=== PATIENT | female | born 1940 | race Caucasian/White ===

== ENCOUNTER 2018-03-18 15:57 | Emergency (ER) | payer MEDICARE, OTHER ==
[~2018-03-18] VITALS: Ht 167.6 cm; Wt 77.1 kg
[2018-03-18] MEDS ORDERED: BP MED (16:11)
[2018-03-18] MEDS ORDERED: TOPROL XL25 MG PO (16:11)
[2018-03-18] MEDS ORDERED: CHOLESTEROL MED (16:11)
[2018-03-18] MEDS ORDERED: COUMADIN 2.5MG2.5 M1 PO (16:11)
[2018-03-18] MEDS ORDERED: MULTIVITAMINS (16:12)
[2018-03-18 17:30] VITALS: BP 133/81
== END 2018-03-18 17:30 | disposition home or self-care (01) ==
LOC: M.ERS 15:57
DX: S01.01XA Laceration without foreign body of scalp, initial encounter (principal); K21.9 Gastro-esophageal reflux disease without esophagitis; M19.90 Unspecified osteoarthritis, unspecified site; Z90.710 Acquired absence of both cervix and uterus; Z98.890 Other specified postprocedural states; W01.0XXA Fall on same level from slipping, tripping and stumbling without subsequent striking against object, initial encounter; Y93.89 Activity, other specified; Y92.89 Other specified places as the place of occurrence of the external cause; Y99.8 Other external cause status; Z88.8 Allergy status to other drugs, medicaments and biological substances

== ENCOUNTER 2021-03-28 20:38 | Inpatient (IN) | payer MEDICARE, OTHER ==
[~2021-03-28] VITALS: Ht 167.6 cm; Wt 73.9 kg
--- NOTE | ~2021-03-28 | EMS ---
[facility] [address] [place] [address] EMS Patient Care Report Name: GRACIELA ARRIAZA Room: [facility]#: [id number] Admission: 03/28/21 Attend Phys: Discharge: Date of : 38 Report #: [id number] THIS REPORT FOR: //name// Report Transmitted: 03/28/2021 20:37 EMS Care Summary [place] [employer] [facility] Incident [id number] @ 03/28/2021 19:33 Incident Location [facility] [address] [place] [address] Patient GRACIELA ARRIAZA Female, 80 Years 1940 Patient Address [address] [place] [address] Patient History Hypertension (HTN),Hyperlipidemia,Anemia, Patient Allergies No known allergies, Patient Medications Pravastatin, Losartan, Metoprolol, Warfarin, Hydrochlorothiazide (Hctz), Chief Complaint Left Hip Pain Disposition Transported No Lights/[place] Dispatch Reason Falls Transported To [facility] Narrative Med 1 and Utility 1 was dispatched for a [age] year old female c/o fall and left hip pain. Upon arrival, patient's was outside the residence and led us into the residence to the back bedroom where the patient was lying on her right side c/o left hip pain. Patient was AOx3, she had a strong, [facility] [address] [place] [address] EMS Patient Care Report Name: GRACIELA ARRIAZA Room: [facility]#: [id number] Admission: 03/28/21 Attend Phys: Discharge: Date of : 38 Report #: [id number] regular bilateral radial pulses. Patient reported that she was getting her husbands bed ready for him when she tripped and fell falling onto the hardwood floor on her left hip. Patient c/o left hip pain upon palpation. Patient rated her pain at a 8/10. She slight rotation to her left leg and was not able to straighten it. She had good pedal pulses in both feet. A sheet was placed under the patients hips and she was placed on a scoop stretcher and moved to the cot. Patient was secured to the cot via seatbelts and moved to the ambulance without incident. In the ambulance, patients vitals were obtained and patient was placed on the manager monitoring. IV access was attempted 2x without success. Patient is on blood thinners and both IV attempts blew. Patient was given 50 mcg of Fentanyl via nasal atomizer. Med 1 went en route to [facility]. Patient was asked to rate her pain after having the Fentanyl, patient rated her pain at a 2/10. Patient was monitored throughout transport. Hospital report was given via radio with no questions or orders received or requested. Med 1 arrived at the hospital. Patient was moved into the hospital via stretcher without incident. Patient care was transferred to ER staff in room 15. Med 1 returned back into service. [id number] KShook Initial Vitals @20:06Pain: 8/10,GCS: 15,Glucose: 123, @20:10P: 95,R: 18,BP: 142/101,GCS: 15,SpO2: 100,Revised Trauma: 12, @20:01R: 18,BP: 137/65,Pain: 8/10, @20:31P: 124,R: 18,BP: 112/82,Pain: 2/10,GCS: 15,SpO2: 97,Revised Trauma: 12, @20:21P: 69,R: 18,BP: 104/73,GCS: 15,SpO2: 100,Revised Trauma: 12, Impression Injury of Hip Procedures @20:08 IV Therapy - Saline Lock cc (22 ga) Site: Forearm-Right Response: UnchangedFailed @20:09 Fentanyl - 50 Micrograms (mcg) - Intranasal Response: Unchanged Timeline 19:33,Call Received 19:33,Dispatched 19:35,En Route 19:41,[place] [address] EMS Patient Care Report Name: GRACIELA ARRIAZA Room: [facility]#: [id number] Admission: 03/28/21 Attend Phys: Discharge: Date of : 38 Report #: [id number] 19:42,At Patient 20:01,BP: 137/65 M,PULSE: ,RR: 18 R,SPO2: Ox,ETCO2: ,BG: ,PAIN: 8,GCS: , 20:06,BP: / M,PULSE: ,RR: R,SPO2: Ox,ETCO2: ,B,PAIN: 8,GCS: 15, 20:08,IV Therapy - Saline Lock cc 22 ga Site: Forearm-Right,Response: UnchangedFailed, 20:09,Fentanyl - 50 Micrograms (mcg) - Intranasal,Response: Unchanged 20:10,Depart Scene 20:10,BP: 142/101 M,PULSE: 95,RR: 18 R,SPO2: 100 Ox,ETCO2: ,BG: ,PAIN: ,GCS: 15, 20:21,BP: 104/73 M,PULSE: 69,RR: 18 R,SPO2: 100 Ox,ETCO2: ,BG: ,PAIN: ,GCS: 15, 20:31,BP: 112/82 M,PULSE: 124,RR: 18 R,SPO2: 97 Ox,ETCO2: ,BG: ,PAIN: 2,GCS: 15, 20:35,At Destination 21:05,Call Closed 21:05,In District Disclaimer v1.1 Copyright 2020 [employer] This EMS Care Summary contains data elements from the applicable legal record (which may be displayed differently). It is designed to provide pertinent information for the following purposes: continuity of care, clinical quality, and state data reporting. The complete legal record is available to ED staff and administrators of the receiving hospital in [employer]s Patient Tracker. All data is provided "as is."
--- NOTE | ~2021-03-28 | EMS ---
[facility] [address] [place] [address] EMS Patient Care Report Name: GRACIELA ARRIAZA Room: [facility]#: [id number] Admission: 03/28/21 Attend Phys: Discharge: Date of : 38 Report #: [id number] THIS REPORT FOR: //name// Report Transmitted: 03/28/2021 21:38 EMS Care Summary [place] [employer] [facility] Incident [id number] @ 03/28/2021 19:33 Incident Location [facility] [address] [place] [address] Patient GRACIELA ARRIAZA Female, 80 Years 1940 Patient Address [address] [place] [address] Patient History Hypertension (HTN),Hyperlipidemia,Anemia, Patient Allergies No known allergies, Patient Medications Pravastatin, Losartan, Metoprolol, Warfarin, Hydrochlorothiazide (Hctz), Chief Complaint Left Hip Pain Disposition Transported No Lights/[place] Dispatch Reason Falls Transported To [facility] Narrative Med 1 and Utility 1 was dispatched for a [age] year old female c/o fall and left hip pain. Upon arrival, patient's was outside the residence and led us into the residence to the back bedroom where the patient was lying on her right side c/o left hip pain. Patient was AOx3, she had a strong, [facility] [address] [place] [address] EMS Patient Care Report Name: GRACIELA ARRIAZA Room: [facility]#: [id number] Admission: 03/28/21 Attend Phys: Discharge: Date of : 38 Report #: [id number] regular bilateral radial pulses. Patient reported that she was getting her husbands bed ready for him when she tripped and fell falling onto the hardwood floor on her left hip. Patient c/o left hip pain upon palpation. Patient rated her pain at a 8/10. She slight rotation to her left leg and was not able to straighten it. She had good pedal pulses in both feet. A sheet was placed under the patients hips and she was placed on a scoop stretcher and moved to the cot. Patient was secured to the cot via seatbelts and moved to the ambulance without incident. In the ambulance, patients vitals were obtained and patient was placed on the bus driver/monitor. IV access was attempted 2x without success. Patient is on blood thinners and both IV attempts blew. Patient was given 50 mcg of Fentanyl via nasal atomizer. Med 1 went en route to [facility] [place]. Patient was asked to rate her pain after having the Fentanyl, patient rated her pain at a 2/10. Patient was monitored throughout transport. Hospital report was given via radio with no questions or orders received or requested. Med 1 arrived at the hospital. Patient was moved into the hospital via stretcher without incident. Patient care was transferred to ER staff in room 15. Med 1 returned back into service. [id number] KShook Initial Vitals @20:06Pain: 8/10,GCS: 15,Glucose: 123, @20:10P: 95,R: 18,BP: 142/101,GCS: 15,SpO2: 100,Revised Trauma: 12, @20:01R: 18,BP: 137/65,Pain: 8/10, @20:31P: 124,R: 18,BP: 112/82,Pain: 2/10,GCS: 15,SpO2: 97,Revised Trauma: 12, @20:21P: 69,R: 18,BP: 104/73,GCS: 15,SpO2: 100,Revised Trauma: 12, Impression Injury of Hip Procedures @20:08 IV Therapy - Saline Lock cc (22 ga) Site: Forearm-Right Response: UnchangedFailed @20:09 Fentanyl - 50 Micrograms (mcg) - Intranasal Response: Unchanged Timeline 19:33,Call Received 19:33,Dispatched 19:35,En Route 19:41,[place] [address] EMS Patient Care Report Name: GRACIELA ARRIAZA Room: [facility]#: [id number] Admission: 03/28/21 Attend Phys: Discharge: Date of : 38 Report #: [id number] 19:42,At Patient 20:01,BP: 137/65 M,PULSE: ,RR: 18 R,SPO2: Ox,ETCO2: ,BG: ,PAIN: 8,GCS: , 20:06,BP: / M,PULSE: ,RR: R,SPO2: Ox,ETCO2: ,B,PAIN: 8,GCS: 15, 20:08,IV Therapy - Saline Lock cc 22 ga Site: Forearm-Right,Response: UnchangedFailed, 20:09,Fentanyl - 50 Micrograms (mcg) - Intranasal,Response: Unchanged 20:10,Depart Scene 20:10,BP: 142/101 M,PULSE: 95,RR: 18 R,SPO2: 100 Ox,ETCO2: ,BG: ,PAIN: ,GCS: 15, 20:21,BP: 104/73 M,PULSE: 69,RR: 18 R,SPO2: 100 Ox,ETCO2: ,BG: ,PAIN: ,GCS: 15, 20:31,BP: 112/82 M,PULSE: 124,RR: 18 R,SPO2: 97 Ox,ETCO2: ,BG: ,PAIN: 2,GCS: 15, 20:35,At Destination 21:05,Call Closed 21:05,In District Disclaimer v1.1 Copyright 2020 [employer] This EMS Care Summary contains data elements from the applicable legal record (which may be displayed differently). It is designed to provide pertinent information for the following purposes: continuity of care, clinical quality, and state data reporting. The complete legal record is available to ED staff and administrators of the receiving hospital in [employer]'s Patient Tracker. All data is provided "as is."
[~2021-03-28 20:38] MED LIST: BP MED; CHOLESTEROL MED; JANTOVEN2.5 MG PO; MULTIVITAMINS; TOPROL XL25 MG PO
[2021-03-28 20:42] VITALS: BP 116/73
[2021-03-28 21:30] LABS: ABSOLUTE EOSINOPHILS 0.1 thou/uL (0.0-0.7); ABSOLUTE LYMPHOCYTES 1.5 thou/uL (0.8-5.3); ABSOLUTE MONOCYTES 1.1 thou/uL (0.0-1.2); ABSOLUTE NEUTROPHILS 8.9 thou/uL (1.6-8.1); BASOPHILS 0.3 %; EOSINOPHILS 1.1 %; HEMATOCRIT 36.7 % (37.0-47.0); HEMOGLOBIN 11.6 gm/dL (12.0-15.0); LYMPHOCYTES 13.1 %; MCH 24.9 pg (26.0-34.0); MCHC 31.7 g/dL (28.0-37.0); MCV 78.5 fL (80.0-100.0); MONOCYTES 9.5 %; MPV 7.1 fl. (7.2-11.1); NUCLEATED RBCS 0 /100WBC; PLATELET COUNT* 249 thou/uL (150-400); RBC 4.67 mil/uL (4.20-5.00); RDW-CV 19.1 % (10.5-14.5); WBC 11.7 thou/uL (4.0-11.0)
[2021-03-28 22:00] LABS: CALCIUM 8.1 mg/dL (8.5-10.1); CREATININE 1.9 mg/dL (0.6-1.3); POTASSIUM 3.2 mmol/L (3.5-5.1)
[2021-03-28 22:04] LABS: TOTAL BILIRUBIN 0.5 mg/dL (<0.1-1.0); TOTAL PROTEIN 6.6 g/dL (6.4-8.2)
[2021-03-28 22:09] LABS: INR 3.5; PROTIME 34.6 Seconds (9.20-11.50)
[2021-03-28 22:10] LABS: INFLUENZA A ANTIGEN Negative (Negative); INFLUENZA B ANTIGEN Negative (Negative)
[2021-03-28 22:20] LABS: URINE BILIRUBIN NEGATIVE (Negative); URINE BLOOD NEGATIVE (Negative); URINE CLARITY CLEAR; URINE COLOR YELLOW; URINE GLUCOSE-RANDOM NEGATIVE (Negative); URINE KETONES NEGATIVE (Negative); URINE LEUKOCYTES-REFLEX NEGATIVE (Negative); URINE NITRITE-REFLEX NEGATIVE (Negative); URINE PROTEIN 1+ (Negative); URINE UROBILINOGEN 0.2 E.U./dl (0.2-1.0)
[2021-03-29 02:00] VITALS: BP 125/59
[2021-03-29 10:01] VITALS: BP 133/54
--- NOTE | 2021-03-29 10:55 | EKG ---
[place] [address] ELECTROCARDIOGRAM REPORT Name: GRACIELA ARRIAZA Room: [place] [address] ADM [place] [facility]#: [id number] Admission: 03/28/21 Attend Phys: Tigist Espinosa Discharge: Date of : 38 Date of Service: 03/28/212051 Report #: [id number] THIS REPORT FOR: //name// [facility] ED Test Date: 2021-03-28 Test Time: 20:52:51 Pat Name: GRACIELA ARRIAZA Department: Room: [facility] Gender: F [employer]: [place] : 1940 Requested By: Sona Campbell Order Number: [id number] MD: Fabian Goodrich Measurements Intervals [place] Rate: 68 P: WI: QRS: 13 QRSD: 89 T: 46 QT: 409 QTc: 436 Interpretive Statements Atrial fibrillation Compared to ECG 02/28/2007 03:31:23 Sinus rhythm no longer present Atrial fibrillation is noted Electronically Signed On 03-29-2021 10:55:13 [employer] by Fabian Goodrich [email or web address] <ELECTRONICALLY SIGNED> By: Fbaian Goodrich MD, FAC 03/29/21 1055 51 51 Fabian Goodrich MD, [facility] /EPI
[2021-03-29 14:04] VITALS: BP 131/60
[2021-03-29 16:37] LABS: CALCIUM 7.6 mg/dL (8.5-10.1); CREATININE 2.1 mg/dL (0.6-1.3); MAGNESIUM 1.6 mg/dL (1.8-2.4); POTASSIUM 3.3 mmol/L (3.5-5.1)
[2021-03-29 17:22] VITALS: BP 115/49
--- NOTE | 2021-03-29 18:56 | 2DMMODE ---
[place] [address] 2 D/M-MODE ECHOCARDIOGRAM Name: SOFIYAGRACIELA Cooper Room: [address] IN [facility]#: [id number] Admission: 03/28/21 Attend Phys: Tigist Espinosa Discharge: Date of : 38 Date of Service: 03/29/21 1856 Report #: [id number] THIS REPORT FOR: cc: Bassam Cochran MD, Christopher MD Liston, Michael J. MD [facility] ~ APPROVED REPORT Study performed: 03/29/2021 15:57:26 EXAM: Comprehensive 2D, Doppler, and color-flow Echocardiogram Patient Location: In-Patient Room #: [facility] Status: routine BSA: 1.90 HR: 107 bpm BP: 131/60 mmHg Rhythm: Atrial Fibrillation Other Information Study Quality: Good Indications Pre-Op Atrial Fibrillation 2D Dimensions IVSd: 12.28 (7-11mm) LVOT Diam: 19.08 (18-24mm) LVDd: 41.21 mm PWd: 12.07 (7-11mm) LVDs: 19.92 (25-40mm) Aortic Root: 26.85 mm Volumes Left Atrial Volume (Systole) LA ESV Index: 30.50 mL/m2 Aortic Valve AoV Peak Musa.: 1.38 m/s AO Peak Gr.: 7.56 mmHg LVOT Max P.62 mmHg AO Mean Gr.: 4.30 mmHg LVOT Mean P.01 mmHg LVOT Max V: 0.95 m/s AO V2 VTI: 21.84 cm LVOT Mean V: 0.66 m/s UMM (VTI): 2.47 cm2 LVOT V1 VTI: 18.86 [place] [address] 2 D/M-MODE ECHOCARDIOGRAM Name: GRACIELA ARRIAZA Room: [address] IN .R.#: [id number] Admission: 03/28/21 Attend Phys: Tigist Espinosa Discharge: Date of : 38 Date of Service: 03/29/21 1856 Report #: [id number] Tricuspid Valve RAP Estimate: 5.00 mmHg TR Peak Gr.: 46.85 mmHg RVSP: 51.00 mmHg PA Pressure: 51.00 mmHg Left Ventricle The left ventricle is normal size. There is normal LV segmental wall motion. Mild concentric left ventricular hypertrophy. Left ventricular systolic function is hyperdynamic. LVEF is >70%. This study is not technically sufficient to allow evaluation of the LV diastolic function due to atrial fibrillation. Right Ventricle The right ventricle is normal size. The right ventricular systolic function is normal. Atria The left atrium size is normal. The right atrium size is normal. Aortic Valve Mild aortic valve sclerosis. No aortic regurgitation is present. There is no aortic valvular stenosis. Mitral Valve The mitral valve is normal in structure. Mild mitral regurgitation. No evidence of mitral valve stenosis. Tricuspid Valve The tricuspid valve is normal in structure. Mild tricuspid regurgitation. Moderate pulmonary hypertension. The RVSP is 50-55 mmHg. Pulmonic Valve The pulmonary valve is normal in structure. There is no pulmonic valvular regurgitation. Great Vessels The aortic root is normal in size. IVC is not well visualized. Pericardium There is no pericardial effusion. <Conclusion> [place] [address] 2 D/M-MODE ECHOCARDIOGRAM Name: SOFIYAGRACIELA Cooper Room: [address] IN [facility].#: [id number] Admission: 03/28/21 Attend Phys: Tigist Espinosa Discharge: Date of : 38 Date of Service: 03/29/21 1856 Report #: [id number] The left ventricle is normal size. Mild concentric left ventricular hypertrophy. Left ventricular systolic function is hyperdynamic. LVEF is >70%. This study is not technically sufficient to allow evaluation of the LV diastolic function due to atrial fibrillation. There is normal LV segmental wall motion. Mild aortic valve sclerosis. There is no aortic valvular stenosis. Mild mitral regurgitation. Mild tricuspid regurgitation. Moderate pulmonary hypertension. The RVSP is 50-55 mmHg. <ELECTRONICALLY SIGNED> By: Ajith Viramontes MD, FACC 03/29/211855 55 55 Ajith Viramontes MD, FACC /INF
[2021-03-29 20:00] VITALS: BP 107/37
[2021-03-29 21:38] VITALS: BP 105/51; BP 111/49
[2021-03-30] VITALS: BP 99/59
[2021-03-30 04:15] LABS: HEMATOCRIT 33.4 % (37.0-47.0); HEMOGLOBIN 10.6 gm/dL (12.0-15.0); MCH 25.2 pg (26.0-34.0); MCHC 31.8 g/dL (28.0-37.0); MCV 79.3 fL (80.0-100.0); MPV 7.4 fl. (7.2-11.1); RBC 4.22 mil/uL (4.20-5.00); RDW-CV 18.9 % (10.5-14.5); WBC 11.7 thou/uL (4.0-11.0)
[2021-03-30 04:32] LABS: PROTIME 14.5 Seconds (9.20-11.50)
[2021-03-30 04:35] LABS: INR 1.4
[2021-03-30 04:43] LABS: ALBUMIN 2.6 g/dL (3.4-5.0); CALCIUM 7.8 mg/dL (8.5-10.1); CREATININE 1.9 mg/dL (0.6-1.3); MAGNESIUM 1.6 mg/dL (1.8-2.4); POTASSIUM 3.8 mmol/L (3.5-5.1); TOTAL BILIRUBIN 0.6 mg/dL (<0.1-1.0); TOTAL PROTEIN 6.8 g/dL (6.4-8.2)
[2021-03-30 09:00] VITALS: BP 132/58
[2021-03-30 17:42] VITALS: BP 133/63
[2021-03-30 20:00] VITALS: BP 137/71
[2021-03-31] VITALS: BP 128/78
[2021-03-31 04:00] VITALS: BP 122/63
[2021-03-31 04:35] LABS: HEMATOCRIT 28.2 % (37.0-47.0); HEMOGLOBIN 9.1 gm/dL (12.0-15.0); MCH 24.9 pg (26.0-34.0); MCHC 32.3 g/dL (28.0-37.0); MPV 7.5 fl. (7.2-11.1); RBC 3.67 mil/uL (4.20-5.00); RDW-CV 19.3 % (10.5-14.5); WBC 11.4 thou/uL (4.0-11.0)
[2021-03-31 04:54] LABS: APTT 33.4 Seconds (25.0-31.3); INR 1.4; PROTIME 13.9 Seconds (9.20-11.50)
[2021-03-31 05:00] LABS: CALCIUM 7.5 mg/dL (8.5-10.1); CREATININE 1.8 mg/dL (0.6-1.3); PHOSPHORUS* 2.4 mg/dL (2.5-4.9); POTASSIUM 3.8 mmol/L (3.5-5.1)
[2021-03-31 07:40] VITALS: BP 129/33
[2021-03-31 13:41] VITALS: BP 111/77
[2021-03-31 18:55] VITALS: BP 104/56
[2021-03-31 20:00] VITALS: BP 140/58
[2021-04-01] VITALS: BP 137/66
[2021-04-01 08:10] VITALS: BP 157/65
[2021-04-01 16:00] VITALS: BP 133/73
[2021-04-01 18:55] VITALS: BP 122/68
[2021-04-01 20:00] VITALS: BP 143/68
[2021-04-02 02:17] VITALS: BP 122/59
[2021-04-02] MEDS ORDERED: FLEXERIL PO (07:40)
[2021-04-02] MEDS ORDERED: ULTRAM 50MG TAB50 MG PO (07:41)
[2021-04-02] MEDS ORDERED: OXYCODONE HCL5 M1 PO (07:41)
[2021-04-02] MEDS ORDERED: PAIN RELIEVER500 MG PO (07:42)
== END 2021-04-02 08:26 | DRG 521 ==
LOC: M.ERS 20:38 → M.TBA-ER 21:56 → M.2W 03-29 14:53
PROVIDERS: Emergency Medicine; Internal Medicine; ADMIT Internal Medicine; ATTEND Internal Medicine
PROC: 30233K1 Transfusion of Nonautologous Frozen Plasma into Peripheral Vein, Percutaneous Approach (ICD-10-PCS; principal; 2021-03-29)
PROC: 0SRB01Z Replacement of Left Hip Joint with Metal Synthetic Substitute, Open Approach (ICD-10-PCS; 2021-03-30)
DX: S72.012A Unspecified intracapsular fracture of left femur, initial encounter for closed fracture (principal); N17.0 Acute kidney failure with tubular necrosis; G92.9 Unspecified toxic encephalopathy; E87.1 Hypo-osmolality and hyponatremia; Z20.822 Contact with and (suspected) exposure to COVID-19; K21.9 Gastro-esophageal reflux disease without esophagitis; M19.90 Unspecified osteoarthritis, unspecified site; J06.9 Acute upper respiratory infection, unspecified; I48.91 Unspecified atrial fibrillation; R54 Age-related physical debility; E87.6 Hypokalemia; I95.9 Hypotension, unspecified; E83.42 Hypomagnesemia; E86.0 Dehydration; T50.905A Adverse effect of unspecified drugs, medicaments and biological substances, initial encounter; Y92.89 Other specified places as the place of occurrence of the external cause; Z90.710 Acquired absence of both cervix and uterus; W18.39XA Other fall on same level, initial encounter; Y93.89 Activity, other specified; Y99.8 Other external cause status

== ENCOUNTER 2021-04-01 14:41 | Inpatient (IN) | payer MEDICARE, OTHER ==
[~2021-04-01] VITALS: Ht 162.6 cm; Wt 76.2 kg
[2021-04-02] MEDS ORDERED: FLEXERIL PO (07:40)
[2021-04-02] MEDS ORDERED: ULTRAM 50MG TAB50 MG PO (07:41)
[2021-04-02] MEDS ORDERED: OXYCODONE HCL5 M1 PO (07:41)
[2021-04-02] MEDS ORDERED: PAIN RELIEVER500 MG PO (07:42)
[2021-04-02 13:22] LABS: HEMATOCRIT 31.1 % (37.0-47.0); MCH 25.2 pg (26.0-34.0); MCHC 32.2 g/dL (28.0-37.0); MCV 78.4 fL (80.0-100.0); MPV 7.3 fl. (7.2-11.1); RBC 3.96 mil/uL (4.20-5.00); WBC 14.3 thou/uL (4.0-11.0)
[2021-04-02 13:38] LABS: ALBUMIN 2.3 g/dL (3.4-5.0); CREATININE 1.1 mg/dL (0.6-1.3); POTASSIUM 3.3 mmol/L (3.5-5.1); TOTAL BILIRUBIN 0.4 mg/dL (<0.1-1.0); TOTAL PROTEIN 6.3 g/dL (6.4-8.2)
--- NOTE | 2021-04-02 17:45 | NUR ---
PT ADMITTED FROM ROOM 218 WITH L HIP FX WHICH WAS REPAIRED. DRESSING TO L HIP C/D/I. UP WITH GAIT BELT, WALKER AND ASSIST X2. SCHEDULED TYLENOL GIVEN FOR PAIN. PT HAD SMALL BM TODAY AFTER NOT GOING X4 DAYS. STOOL SOFTENER ALSO GIVEN WITH NO RESULTS AT THIS TIME. PT'S SON, YADI, HERE DURING ADMISSION AND ASSISTED WITH INFO. REPORTS THAT SHE HAS BEEN HALLUCINATING HERE AND AT HOME AND HAS DEMENTIA. PT'S HERE LAST SATURDAY OF A HEART ATTACK. PT IS AWARE. HUI TO DD. PT REPORTS THAT SHE HAS A COLD AND LOST HER VOICE. DR VERMA AWARE. MEDICATION ORDERED. CALL LIGHT IN REACH. FALL PRECAUTIONS IN PLACE.
[2021-04-02 20:11] VITALS: BP 148/78
--- NOTE | 2021-04-03 04:51 | NUR ---
ASSUMED PT CARE AT 1930. PT ALERT AND ORIENTED X4, POLITE AND COOPERATIVE WITH CARES. DRESSING TO L HIP C/D/I. HUI TO DD DRAINING DARK YELLOW URINE. UP WITH GAIT BELT, WALKER AND ASSIST OF TWO TO BSC. STOOL X1. PT HAS A COLD WITH COUGHING, NASAL DRAINAGE AND SCRATCHY VOICE. CALL LIGHT IN REACH, BED ALARM ON FOR SAFETY. HOURLY ROUNDING IN PROGRESS. WILL CONTINUE TO MONITOR.
[2021-04-03 07:45] VITALS: BP 147/77
--- NOTE | 2021-04-03 11:48 | NUR ---
Nutrition: New admit for lt hip fx. Wt down from acute admit at 172 lb but up from low of 163 lb. No recent intake charted, nsg reports pt ate well this am. Prior nsg note indicated pt had good appetite. Albumin 2.3, phos 2.4, K 3.3, BUN 28, prealbumin 13.0. Prednisone and other meds reivewed. Assessed at mild nutrition risk. Will trial Ensure with lunch; RD to follow up weekly.
[2021-04-03 19:00] VITALS: BP 156/90
[2021-04-04 07:54] VITALS: BP 140/83
--- NOTE | 2021-04-04 16:53 | NUR ---
INITIAL ASSESSMENT: PATIENT ADMITTED TO [facility] ON 04/02/21 WITH A DIAGNOSIS OF LEFT HIP FX. PRIOR TO ADMIT PT RESIDED AT HOME WITH SPOUSE. HOWEVER PT'S SPOUSE RECENTLY . PRIOR TOP ADMIT PT ACTIVE AND INDEPENDENT. PT OWNS A WALKER, BUT DID NOT USE IT. PT HAS PAST HX OF HH. PT HAS 0 HX OF SNF. PLAN FOR PT TO RETURN HOME AT D/C WITH HH. CM ORIENTED THE PT AND HER DTR TO THE [facility] AND PROCESSES. RESIDENTS RIGHTS INFO, TEAM CONFRENCE, AND TO THE ROLE OF CM. CM WILL REMAIN AVAILABLE TO ASSIST AND FOLLOW NEEDED.
[2021-04-04 19:00] VITALS: BP 159/90
--- NOTE | 2021-04-04 21:00 | NUR ---
IN BED RESTING AND WATCHING TV. ANXIOUS AND FUSSY. GAVE PRN THROAT LOZENGER FOR COMPLAINT OF COUGHING. CUT PILLS IN HALF. CALL LIGHT WITHIN REACH.
--- NOTE | 2021-04-05 05:14 | NUR ---
UP X ONE DURING THE NIGHT TO THE BEDSIDE COMMODE WITH ASSIST OF ONE TO VOID. NO COMPLAINT OF PAIN/COUGHING. HOURLY ROUNDING IN PROGRESS.
[2021-04-05 06:29] LABS: HEMATOCRIT 36.8 % (37.0-47.0); HEMOGLOBIN 11.5 gm/dL (12.0-15.0); MCHC 31.2 g/dL (28.0-37.0); MCV 80.1 fL (80.0-100.0); MPV 7.2 fl. (7.2-11.1); RBC 4.6 mil/uL (4.20-5.00); RDW-CV 19.8 % (10.5-14.5); WBC 15.5 thou/uL (4.0-11.0)
[2021-04-05 07:38] LABS: CALCIUM 8.5 mg/dL (8.5-10.1); CREATININE 1.1 mg/dL (0.6-1.3); POTASSIUM 3.7 mmol/L (3.5-5.1)
[2021-04-05 07:53] VITALS: BP 161/70
--- NOTE | 2021-04-05 16:25 | NUR ---
PT IS UP WITH GAIT BELT AND 1 ASST. PT HAS LT HIP FX FROM A FALL AND IS WBAT. PT HAD NO COMPLAINTS OF PAIN TODAY AND COMPLETED ALL THERAPY. PT IS RESTING IN CHAIR WITH CALL LIGHT IN PLACE AND FALL PRECAUTIONS IN PLACE.
[2021-04-05 19:41] VITALS: BP 92/74
--- NOTE | 2021-04-06 05:25 | NUR ---
ASSUMED CARE AT 1920. ALERT AND ORIENTED. PLEASANT. WBAT LLE. DRSG TO LEFT HIP INTACT. MOD ASSIST WITH GAIT BELT AND WALKER. UP TO BSC. SLEPT OFF AND ON. CALL LIGHT IN REACH AND BED ALARM ON.
[2021-04-06 07:52] VITALS: BP 157/65
[2021-04-06 20:00] VITALS: BP 111/63
[2021-04-07 07:44] LABS: HEMATOCRIT 29.6 % (37.0-47.0); HEMOGLOBIN 9.6 gm/dL (12.0-15.0); MCH 25.6 pg (26.0-34.0); MCHC 32.4 g/dL (28.0-37.0); MCV 79.2 fL (80.0-100.0); MPV 6.8 fl. (7.2-11.1); RBC 3.74 mil/uL (4.20-5.00); RDW-CV 19.9 % (10.5-14.5); WBC 10.9 thou/uL (4.0-11.0)
[2021-04-07 07:56] LABS: INR 3.9; PROTIME 37.9 Seconds (9.20-11.50)
[2021-04-07 08:00] VITALS: BP 163/90
[2021-04-07 08:00] LABS: ALBUMIN 2.4 g/dL (3.4-5.0); CALCIUM 8.3 mg/dL (8.5-10.1); CREATININE 0.9 mg/dL (0.6-1.3); MAGNESIUM 1.5 mg/dL (1.8-2.4); POTASSIUM 3.6 mmol/L (3.5-5.1); TOTAL BILIRUBIN 0.5 mg/dL (<0.1-1.0)
--- NOTE | 2021-04-07 18:26 | NUR ---
AM ASSESSMENT AND VITAL SIGNS COMPLETED DOCUMENTED. PT CONTINUES TO WORK WITH PT, OT AND ST, GRADUAL PROGRESS TOWARD DISCHARGE GOALS. PT CONTINUES TO C/O HER MOUTH BURNING WHEN SHE TRIES TO EAT, NYSTATIN SWISH AND SWALLOW STARTED ON SATURDAY. TODAY'S DOSE OF WARFARIN HELD AFTER AM INR OF 3.9. PT WILL BE STARTED ON ORAL LASIX IN AM FOR LOWER EXTREMITY EDEMA. FALL PRECAUTIONS AND HOURLY ROUNDING CONTINUE.
[2021-04-07 19:40] VITALS: BP 148/83
--- NOTE | 2021-04-08 05:00 | NUR ---
ASSUMED PT CARE AT 1930. PT ALERT AND ORIENTED X4, POLITE AND COOPERATIVE WITH CARES. PT SITTING UP IN RECLINER AT SHIFT CHANGE. UP WITH MOD ASSIST, GAIT BELT AND WALKER. WBAT LLE. DRESSING TO LEFT HIP INTACT. UP TO BSC. SLEPT MOST OF THE NIGHT. CALL LIGHT IN REACH, BED ALARM ON FOR SAFETY. HOURLY ROUNDING IN PROGRESS, WILL CONTINUE TO MONITOR.
[2021-04-08 07:50] VITALS: BP 165/74
[2021-04-08] MEDS ORDERED: HYDROCHLOROTHIA25 M1 PO (09:27)
[2021-04-08] MEDS ORDERED: SLOW FE PO (09:28)
[2021-04-08] MEDS ORDERED: PROTONIX40 M2 PO (09:29)
[2021-04-08] MEDS ORDERED: SEROQUEL 25 MG25 MG PO (09:30)
[2021-04-08 11:07] LABS: INR 3.2; PROTIME 31.1 Seconds (9.20-11.50)
--- NOTE | 2021-04-08 12:52 | NUR ---
TEAM CONFRENCE MEETING HELD THIS WEEK. PLAN FOR THE PT TO REMAIN ON THE UNIT AND CONTINUE THERAPIES FOR ANOTHER WEEK. PT, AND SON IN AGREEMENT WITH PLAN. PT PROGRESSING WELL TOWARDS GOALS. CM WILL REMAIN AVAILABLE TO ASSIST AND FOLLOW NEEDED.
--- NOTE | 2021-04-08 16:47 | NUR ---
PATIENT COMPLETED THERAPIES THIS SHIFT ORDERED. UP TO RECLINER. UP WITH GAIT BELT AND WALKER. GALI HOSE IN PLACE JESSICA LE'S. PATIENT STARTED ON PO LASIX AND VOIDING LARGE AMOUNTS OF URINE. PATIENT SON GIVEN UPDATE THIS AM, SON CALLING REGARDING PATIENTS MEDS LIST. DR. ASHYB NOTIFIED OF CHANGES. TERENCE NOTIFIED THAT FAMILY WANTED TO SPEAK TO CM, PER TERENCE SPOKE WITH FAMILY THIS SHIFT. DR. ASHBY ALSO CALLED PATIENTS SON YADI PER REQUEST FOR UPDATE. PATIENT COVID NEGATIVE THIS SHIFT, FAMILY AND PATIENT AWARE. DR. PETERSON NOTIFIED [facility]/ARCHITECTURAL DRAFTSMAN AND REHAB STAFF. PRN TRAMADOL GIVEN X 1 THIS SHIFT. INR DRAWN THIS AM WITH LEVEL OF 3.2. DR. ASHBY NOTIFIED AND ORDERS TO HOLD THIS EVENING. NYSTATIN DC'D AND PATIENT TO USE POWDER PROVIDED BY DR. ASHBY FOR MOUTH SORES. MG LEVEL 1.5, BEING REPLACED PER PROTOCOL.
[2021-04-08 19:59] VITALS: BP 150/73
--- NOTE | 2021-04-08 23:36 | NUR ---
ASSUMED CARE AT 1930. PATIENT RESTING IN RECLINER UNTIL HS, THEN TO BED. UP WITH ONE, GAIT BELT, WALKER. WBAT TO LLE. WEARING GALI HOSE TO LLE. VOIDS PER BSC. TAKES PILLS WHOLE WITH WATER. DSSG TO LT HIP C/D/I. NO C/O PAIN. POWDER GIVEN BY DR. ASHBY USED ON SORE ON LIPS . HOURLY ROUNDS CONTINUE. BED ALARM ON. CALL LITE IN REACH.
--- NOTE | 2021-04-09 06:20 | NUR ---
SLEPT MOST OF THE SHIFT. NO C/O PAIN. VOIDED PER BSC. HOURLY ROUNDS CONTINUE. BED ALARM ON. CALL LITE IN REACH.
[2021-04-09 07:34] LABS: HEMATOCRIT 31.5 % (37.0-47.0); MCH 25.3 pg (26.0-34.0); MCHC 31.8 g/dL (28.0-37.0); MCV 79.4 fL (80.0-100.0); MPV 6.8 fl. (7.2-11.1); RBC 3.97 mil/uL (4.20-5.00); RDW-CV 20.2 % (10.5-14.5)
[2021-04-09 07:41] LABS: CALCIUM 8.2 mg/dL (8.5-10.1); CREATININE 0.9 mg/dL (0.6-1.3); MAGNESIUM 1.6 mg/dL (1.8-2.4); POTASSIUM 3.9 mmol/L (3.5-5.1)
[2021-04-09 07:50] VITALS: BP 168/88
--- NOTE | 2021-04-09 16:45 | NUR ---
PATIENT UP TO RECLINER, AMBULATING TO BSC. GAIT BELT AND WALKER UTILIZED. PATIENT ASSISTED THIS AM WITH DRESSING AND ORAL HYGIENE. PATIENTS GRANDDAUGHTER HERE THIS AFTERNOON, REQUESTING THERAPY RECORDS. PATIENT TO FILL OUT MR FORM AND WILL SEND OFF. DR. ASHBY NOTIFIED OF IRON STUDIES RESULTS, PO IRON ORDERED. NO COMPLAINTS OF PAIN THIS SHIFT. GALI HOSE IN PLACE, SKIN CHECKED. PATIENT VOIDING PER BSC, BM NOTED. MG LEVEL 1.6 REPLACING PER PROTOCOL.
[2021-04-09 19:37] VITALS: BP 153/80
--- NOTE | 2021-04-09 20:10 | NUR ---
SITTING UP IN BED WATCHING TV. CALL LIGHT WITHIN REACH. LEFT HIP DRESSING INTACT.
--- NOTE | 2021-04-10 04:57 | NUR ---
RESTED ON/OFF. COMPLAINED OF HEARTBURN FROM SPICY HAMBURGER EATEN FOR SUPPER. DECLINED OFFER OF [place]. HOURLY ROUNDING IN PROGRESS.
[2021-04-10 04:59] LABS: HEMATOCRIT 34.6 % (37.0-47.0); HEMOGLOBIN 10.8 gm/dL (12.0-15.0); MCH 25.1 pg (26.0-34.0); MCHC 31.3 g/dL (28.0-37.0); MPV 7.2 fl. (7.2-11.1); RBC 4.32 mil/uL (4.20-5.00); RDW-CV 19.9 % (10.5-14.5); WBC 12.6 thou/uL (4.0-11.0)
[2021-04-10 05:08] LABS: INR 1.8
[2021-04-10 05:58] LABS: ALBUMIN 2.6 g/dL (3.4-5.0); CALCIUM 8.2 mg/dL (8.5-10.1); MAGNESIUM 1.9 mg/dL (1.8-2.4); POTASSIUM 3.4 mmol/L (3.5-5.1); TOTAL BILIRUBIN 0.6 mg/dL (<0.1-1.0)
[2021-04-10 08:30] VITALS: BP 157/53
--- NOTE | 2021-04-10 17:41 | NUR ---
ALERT AND ORIENTED X4. UP WITH 1 ASSIST, GAIT BELT AND WALKER. DENIES NEED FOR PAIN MEDICATION. DRESSING DRY AND INTACT LEFT HIP. DR NOTIFIED OF SORE LIPS AND MOUTH AND NEW ORDERS NOTED. TAKES PILLS WITHOUT DIFFICULTY. USES CALL LIGHT FOR ASSIST. FALL PRECAUTIONS IN PLACE.
[2021-04-10 19:19] VITALS: BP 146/74
--- NOTE | 2021-04-10 20:30 | NUR ---
SITTING UP IN BED WATCHING TV. IN GOOD SPIRITS. SMILING. EXTERNAL MOUTH SORES APPEAR SMALLER THAN LAST NIGHT. PATIENT USES MOUTH MOISTURIZER ON SORES. CALL LIGHT WITHIN REACH.
--- NOTE | 2021-04-11 05:33 | NUR ---
UP X ONE TO THE BATHROOM TO VOID. RESTED QUIETLY. HOURLY ROUNDING IN PROGRESS.
[2021-04-11 07:23] VITALS: BP 128/77; BP 145/71
--- NOTE | 2021-04-11 17:10 | NUR ---
CM SPOKE TO THE PT AND HER DTR NANCI AT THE BEDSIDE TO DISCUSS ANY QUESTIONS OR CONCERNS THAT THEY MAY HAVE FOR THIS WEEKS TEAM CONFRENCE MEETING. PT AND HER DTR HAVE NO QUESTIONS OR CONCERNS AT THIS TIME. PT'S DTR PLANS TO BE HERE TOMORROW AFTER THE MEETING FOR THE UPDATE. CM WILL REMAIN AVAILABLE TO ASSIST AND FOLLOW NEEDED.
--- NOTE | 2021-04-11 17:32 | NUR ---
AM ASSESSMENT AND VITAL SIGNS COMPLETED DOCUMENTED. PT CONTINUES TO WORK WITH PT, OT AND ST WITH GOOD PROGRESS TOWARD DISCHARGE GOALS. NO C/O PAIN OR DISCOMFORT. FALL PRECAUTIONS AND HOURLY ROUNDING CONTINUE.
[2021-04-11 19:00] VITALS: BP 128/78
[2021-04-12 05:11] LABS: HEMATOCRIT 32.9 % (37.0-47.0); HEMOGLOBIN 10.7 gm/dL (12.0-15.0); MCH 25.3 pg (26.0-34.0); MCHC 32.6 g/dL (28.0-37.0); MCV 77.7 fL (80.0-100.0); MPV 6.7 fl. (7.2-11.1); RBC 4.24 mil/uL (4.20-5.00); WBC 11.2 thou/uL (4.0-11.0)
[2021-04-12 05:44] LABS: CALCIUM 8.2 mg/dL (8.5-10.1); CREATININE 0.9 mg/dL (0.6-1.3); POTASSIUM 3.1 mmol/L (3.5-5.1)
[2021-04-12 07:38] VITALS: BP 157/70
[2021-04-12] MEDS ORDERED: LIPITOR 20 MG T20 M1 PO (07:50)
[2021-04-12] MEDS ORDERED: FERREX 150 PLU1 EAC1 PO (07:50)
[2021-04-12] MEDS ORDERED: TESSALON PERLE100 MG PO (07:50)
[2021-04-12] MEDS ORDERED: LASIX 40 MG TAB40 M2 PO (07:50)
[2021-04-12] MEDS ORDERED: MAGIC MOUTHWASH BLM PO (07:50)
[2021-04-12] MEDS ORDERED: PAIN RELIEVER500 MG PO (07:50)
[2021-04-12] MEDS ORDERED: PREDNISONE 20 M20 MG PO (07:50)
[2021-04-12] MEDS ORDERED: LIDODERM1 EACH TOP (07:50)
[2021-04-12] MEDS ORDERED: PREDNISONE 10 M10 MG PO (07:54)
--- NOTE | 2021-04-12 16:39 | NUR ---
TEAM CONFRENCE MEETING HELD TODAY. PLAN TO RE-TEAM AND D/C PT NEXT SATURDAY. PT AND DTR IN AGREEMENT WITH PLAN. PT'S DTR TO REACH OUT TO CM AND INFORM OF WHEN FAMILY IS ABLE TO COMPLETE FAMILY TRAINING EITHER SATURDAY OR SATURDAY. CM WILL REMAIN AVAILABLE TO ASSIST AND FOLLOW NEEDED.
--- NOTE | 2021-04-12 18:11 | NUR ---
PT WORKED WITH THERAPIES. UP WITH GAIT BELT, WALKER AND ASSIST X1. FRIEND HERE TO VISIT. PRN OXY GIVEN TODAY PER PT REQUEST. PT DID NOT TOLERATE IT WELL. BECAME DIZZY AND ANXIOUS. PT'S FRIEND STATED THAT THE PT'S DOCTOR DID NOT TELL HER NOT TO TAKE TYLENOL. PT THEN REMEMBERED THAT IT WAS IBUPROFEN, NOT TYLENOL THAT SHE IS NOT TO TAKE. DR MARIO NOTIFIED. OXY D/C'D. TYLENOL ORDERED. CALL LIGHT IN REACH. FALL PRECAUTIONS IN PLACE.
[2021-04-12 19:00] VITALS: BP 128/74
--- NOTE | 2021-04-13 05:03 | NUR ---
ASSUMED CARE AT 1920. ALERT AND ORIENTED. PLEASANT. DENIED ANY NEED FOR PAIN MEDS. MIN ASSIST WITH GAIT BELT AND WALKER. UP TO BATHROOM. WBAT LLE. DRSG TO LEFT HIP. SLEPT LITTLE OFF AND ON. CALL LIGHT IN REACH AND BED ALARM ON.
[2021-04-13 07:49] VITALS: BP 128/74
--- NOTE | 2021-04-13 15:58 | NUR ---
09:30 Dtr Yarely called this am ([phone]) requesting what she needs to prepare and what DME mom is going to need when she comes home. Also wants to scheduled Family Training for Saturday04/17/21 am , pts son will also be attending. CM will call back end of dtrs work day after 3:30 with answers to her questions. 1601 Called Yarely back, notified rehab consultant request for FT 04/17 am. Nurse stated will call dtr back when she knows times that are available. Per PT/OT notes pt is requiring Gait belt, Roller walker, and bedside rails discussed with pt today. Pt walking SBA 220 ft,with RW. No steps attempted yet, pt has 4 steps to enter the dtrs home. Dtr asked about stool riser, she has one in her bathroom in hospital, discussed if mom wante one, where dtr could buy one, such as [employer] or [facility] here in [place]. CM Will provide her with further info when FT completed next week. Will have a better idea of DME needs. Dtr voiced apprehension about mom coming home "too early" explained she is evaluated daily and this is discussed as team weekly. if she has not reached agreed upon goals then the dc date can be extended if needed. Dc date tentative for 04/19 per dt, explained that was based upon progress to date and at what rate she has been progressing.
--- NOTE | 2021-04-13 16:43 | NUR ---
PATIENT COMPLETED THERAPIES THIS SHIFT ORDERED. UP WITH ASSISTANCE; GAIT BELT AND WALKER. VOIDING PER TOILET, BM NOTED X 2. DRESSING TO LEFT HIP REMOVED PER ORDERS, DERMABOND AND SCABBING NOTED. PRN TRAMADOL GIVEN X 1 THIS SHIFT FOR LEFT LEG PAIN. BETTER APPETITE TODAY.
[2021-04-13 19:00] VITALS: BP 133/68
[2021-04-13 20:06] LABS: INR 1.4; PROTIME 14.6 Seconds (9.20-11.50)
--- NOTE | 2021-04-13 23:57 | NUR ---
ASSUMED CARE AT 1930. PATIENT RESTING IN RECLINER UNTIL HS. UP WITH ONE, GAIT BELT, WALKER, WBAT LLE. 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 VOIDS PER TOILET. DENIES PAIN. HOURLY ROUNDS CONTINUE. BED ALARM ON. CALL LITE IN REACH.
--- NOTE | 2021-04-14 06:43 | NUR ---
SLEPT MUCH OF THE NIGHT. AWOKE AROUND 0530. VOIDED PER TOILET. TURNS SELF. NO C/O PAIN. HOURLY ROUNDS CONTINUE. BED ALARM ON. CALL LITE IN REACH.
[2021-04-14 08:31] VITALS: BP 127/58
--- NOTE | 2021-04-14 09:30 | NUR ---
[facility]U/[facility] requesting if tub or walkin shower used at home, will start working with patient. Spoke to Yarely,Dtr [phone]. While pt at dtrs house post ARU she will bathe in walkin shower. Once pt returns home pt has a tub. Notified [facility]
--- NOTE | 2021-04-14 17:43 | NUR ---
PT IS UP WITH GAIT BELT AND WALKER. PT COMPLETED ALL THERAPY. PT IS WBAT ON LT HIP. PT IS RESTING IN CHAIR WATCHING TV WITH CALL LIGHT IN REACH AND FALL PRECAUTIONS IN PLACE.
[2021-04-14 20:13] VITALS: BP 120/59
--- NOTE | 2021-04-15 05:26 | NUR ---
ASSUMED PT CARE AT 1930. PT ALERT AND ORIENTED X4, POLITE AND COOPERATIVE WITH CARES. UP TO BATHROOM TO VOID WITH ONE, GAIT BELT AND WALKER. WBAT LLE. L HIP INCISION JOSE, DERMABOND PRESENT. STOOL X2 THIS SHIFT. DENIES PAIN. SLEPT WELL OVERNIGHT. PT ANTICIPATING FAMILY TRAINING ON SATURDAY FOLLOWED BY DISCHARGE ON SATURDAY. CALL LIGHT IN REACH, BED ALARM ON FOR SAFETY. HOURLY ROUNDING IN PROGRESS, WILL CONTINUE TO MONITOR.
[2021-04-15 07:20] VITALS: BP 136/75
--- NOTE | 2021-04-15 17:57 | NUR ---
PT UP WITH GAIT BELT AND WALKER. REPORTED FEELING DIZZY THIS AM. DR MARIO NOTIFIED. PER DR MARIO NURSING IS TO GAT AN EKG NEXT TIME PT REPORTS DIZZINESS. DAUGHTER HERE TO VISIT. UPDATED ON FAMILY TRAINING SATURDAY. DENIED NEED FOR PAIN MEDICATION. CALL LIGHT IN REACH. FALL PRECAUTIONS IN PLACE.
[2021-04-15 19:00] VITALS: BP 129/73
--- NOTE | 2021-04-16 04:56 | NUR ---
ASSUMED PT CARE AT 1930. PT ALERT AND ORIENTED X4, POLITE AND COOPERATIVE WITH CARES. NO C/O PAIN OR DIZZINESS. UP TO BATHROOM WITH ASSIST OF ONE, GAIT BELT AND WALKER TO VOID. FAMILY TRAINING TO BE HELD SATURDAY, WITH DISCHARGE ANTICIPATED ON SATURDAY. CALL LIGHT IN REACH, BED ALARM ON FOR SAFETY. HOURLY ROUNDING IN PROGRESS, WILL CONTINUE TO MONITOR.
[2021-04-16 08:15] VITALS: BP 127/55
[2021-04-16 12:29] LABS: ABSOLUTE BASOPHILS 0.1 thou/uL (0.0-0.2); ABSOLUTE LYMPHOCYTES 1.1 thou/uL (0.8-5.3); ABSOLUTE MONOCYTES 0.9 thou/uL (0.0-1.2); ABSOLUTE NEUTROPHILS 11.5 thou/uL (1.6-8.1); BASOPHILS 0.5 %; EOSINOPHILS 0.3 %; HEMATOCRIT 40.1 % (37.0-47.0); HEMOGLOBIN 12.8 gm/dL (12.0-15.0); LYMPHOCYTES 7.9 %; MCH 25.4 pg (26.0-34.0); MCHC 31.8 g/dL (28.0-37.0); MCV 79.7 fL (80.0-100.0); MONOCYTES 6.6 %; MPV 6.9 fl. (7.2-11.1); NUCLEATED RBCS 0 /100WBC; PLATELET COUNT* 278 thou/uL (150-400); POLYS 84.7 %; RBC 5.04 mil/uL (4.20-5.00); RDW-CV 19.2 % (10.5-14.5); WBC 13.5 thou/uL (4.0-11.0)
[2021-04-16 12:35] LABS: PROTIME 22.7 Seconds (9.20-11.50)
[2021-04-16 12:36] LABS: INR 2.3
--- NOTE | 2021-04-16 16:32 | NUR ---
ALERT AND ORIENTED X4. UP WITH 1 ASSIST, GAIT BELT AND WALKER. LEFT HIP INCISION GLUE OPEN TO AIR. NO C/O DIZZINESS TODAY. TAKES PILLS WITHOUT DIFFICULTY. DENIES NEED FOR PAIN MEDICATION. CONTINENT OF BOWEL AND BLADDER. USES CALL LIGHT FOR ASSIST. FALL PRECAUTIONS IN PLACE.
[2021-04-16 19:38] VITALS: BP 156/73
--- NOTE | 2021-04-17 05:25 | NUR ---
ASSUMED CARE AT 1920. ALERT AND ORIENTED. PLEASANT. DENIED ANY NEED FOR PAIN MEDS. MIN ASSIST WITH GAIT BELT AND WALKER. UP TO BATHROOM. LEFT HIP INCISION WELL APPROXIMATED AND JOSE. SLEPT OFF AND ON. CALL LIGHT IN REACH AND BED ALARM ON.
[2021-04-17 08:30] VITALS: BP 134/85
--- NOTE | 2021-04-17 15:35 | NUR ---
Request from [facility] to obtain walker authorization. [facility] faxed pt information and called back to confirm walker approved. Notified TF PT approved. fax [phone] for PP
--- NOTE | 2021-04-17 17:03 | NUR ---
ALERT AND ORIENTED X4. UP WITH STAND BY ASSIST, GAIT BELT AND WALKER. DENIES NEED FOR PAIN MEDICATION. CONTINENT OF BOWEL AND BLADDER. TAKES PILLS WITHOUT DIFFICULTY. USES CALL LIGHT WITHIN REACH. FALL PRECAUTIONS IN PLACE.
[2021-04-17 19:00] VITALS: BP 144/77
--- NOTE | 2021-04-18 04:56 | NUR ---
ASSUMED PT CARE AT 1930. PT ALERT AND ORIENTED X4, POLITE AND COOPERATIVE WITH CARES. UP WITH SBA, GAIT BELT AND WALKER TO BATHROOM TO VOID. LEFT HIP INCISION WELL APPROXIMATED, JOSE. DENIES PAIN. SLEPT WELL OVERNIGHT. CALL LIGHT IN REACH, BED ALARM ON FOR SAFETY. HOURLY ROUNDING IN PROGRESS, WILL CONTINUE TO MONITOR.
[2021-04-18 07:40] VITALS: BP 143/64
--- NOTE | 2021-04-18 15:31 | NUR ---
Called Camila Pritchett [phone] left voice mail and Cell # to call if any concerns or questions prior to team meeting 04/19/21. As of last week team meeting, plan is for discharge home. [facility] [place] approved by [facility] 04/17/21. Spoke with dtr last week about some anticipated DME needs, will finalize for any DME need after team meeting tomorrow
--- NOTE | 2021-04-18 16:42 | NUR ---
PATIENT COMPLETED THERAPIES THIS SHIFT ORDERED. UP WITH ASSISTANCE; GAIT BELT AND WALKER. DISCHARGE TO HOME TOMORROW. VOIDING PER TOILET, BM NOTED THIS SHIFT. PATIENT C/O LEFT HIP SORENESS BUT DID NOT REQUIRE ANY PAIN MEDICATION THIS SHIFT.
[2021-04-18 19:00] VITALS: BP 118/56
[2021-04-19 05:24] LABS: HEMATOCRIT 38.4 % (37.0-47.0); HEMOGLOBIN 12.1 gm/dL (12.0-15.0); MCH 24.9 pg (26.0-34.0); MCHC 31.5 g/dL (28.0-37.0); RBC 4.86 mil/uL (4.20-5.00); RDW-CV 18.9 % (10.5-14.5); WBC 9.6 thou/uL (4.0-11.0)
[2021-04-19 05:30] LABS: INR 2.8; PROTIME 27.8 Seconds (9.20-11.50)
[2021-04-19 05:32] LABS: CALCIUM 8.5 mg/dL (8.5-10.1); CREATININE 1.1 mg/dL (0.6-1.3)
--- NOTE | 2021-04-19 05:43 | NUR ---
ASSUMED PT CARE AT 1930. PT ALERT AND ORIENTED X4, POLITE AND COOPERATIVE WITH CARES. DENIES PAIN. UP TO BATHROOM WITH SBA, GAIT BELT AND WALKER TO VOID. NO STOOL THIS SHIFT. PT TO DISCHARGE HOME TODAY. CALL LIGHT IN REACH, BED ALARM ON FOR SAFETY. HOURLY ROUNDING IN PROGRESS, WILL CONTINUE TO MONITOR.
[2021-04-19 05:50] LABS: POTASSIUM 2.6 mmol/L (3.5-5.1)
[2021-04-19 08:12] VITALS: BP 116/65
[2021-04-19] MEDS ORDERED: KLOR-CON 1010 MEQ PO (12:18)
[2021-04-19 13:43] VITALS: BP 116/65
--- NOTE | 2021-04-19 14:17 | NUR ---
PT UP WITH GAIT BELT AND WALKER AND SBA. PT COMPLETED ALL THERAPY. PT HAD NO COMPLAINTS OF PAIN. PT HAD POTASSIUM LAB COME BACK AT 2.6. DR MARIO NOTIFIED. POATASSIUM GIVEN AT 6:20 AND 8:20 AM LAB RE DRAWN AT 12:20PM POTASSIUM 3.7. PT WAITING IN WITH DAUGHTER WAITING TO BE DC'D TO DAUGHTERS HOUSE.
--- NOTE | 2021-04-19 15:13 | NUR ---
Case and plan of care reviewed with physician and therapies during weekly team meeting today. Plan is for discharge today Home with Camila Pritchett, and HH. No preference for HH agency, pt had HH about three months ago but pt or Dtr don't remember what agency. [facility] accepted pt and will call to schedule visit tomorrow, Gave Camila Bone number to contact. [place] fax [phone] referral info sent. Called Dr Bassam Cochran [facility] [place] [phone] opt 1 attempted to schedule appt, was transferred to Dr Cochran Nurse and VM left. No return call yet. Request post hosp f/u visit and lab recheck for K+ . Notified dtr Yarely at this time will call her once I have appt date and time. Notified HH will be calling her to schedule visits.
[2021-04-19 15:54] VITALS: BP 116/65
[2021-04-19 15:56] VITALS: BP 116/65
--- NOTE | 2021-04-20 13:39 | NUR ---
[facility] called /[place] only half of a couple of pages printed, remainder blank. Refaxed referral info to [phone]
== END 2021-04-19 16:54 | disposition home health service (06) | DRG 535 ==
LOC: M.REH 14:41
PROVIDERS: Internal Medicine; ADMIT Physical Medicine & Rehabilitation; ATTEND Physical Medicine & Rehabilitation
DX: S72.012A Unspecified intracapsular fracture of left femur, initial encounter for closed fracture (principal); G93.41 Metabolic encephalopathy; N17.9 Acute kidney failure, unspecified; N18.9 Chronic kidney disease, unspecified; E87.6 Hypokalemia; I48.91 Unspecified atrial fibrillation; D64.9 Anemia, unspecified; G89.29 Other chronic pain; M54.9 Dorsalgia, unspecified; I12.9 Hypertensive chronic kidney disease with stage 1 through stage 4 chronic kidney disease, or unspecified chronic kidney disease; T50.905A Adverse effect of unspecified drugs, medicaments and biological substances, initial encounter; E86.0 Dehydration; F03.90 Unspecified dementia, unspecified severity, without behavioral disturbance, psychotic disturbance, mood disturbance, and anxiety; K21.9 Gastro-esophageal reflux disease without esophagitis; M19.90 Unspecified osteoarthritis, unspecified site; Z20.822 Contact with and (suspected) exposure to COVID-19; Y92.89 Other specified places as the place of occurrence of the external cause; W18.39XA Other fall on same level, initial encounter; Y93.89 Activity, other specified; Y99.8 Other external cause status